=== PATIENT | female | born 2000 | race Caucasian/White ===

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

== ENCOUNTER → 2018-02-19 12:11 | Outpatient (CLI) | payer OTHER, MEDICAID, SELFPAY ==
--- NOTE | 2018-02-19 12:13 | DI.RAD.S_ITS ---
PROCEDURE: XR ABDOMEN 1V INDICATIONS: f/u constipation TECHNIQUE: One view of the abdomen acquired. COMPARISON: [facility], CR, XR ABDOMEN 1V, 11/29/2017, 16:17. FINDINGS: Surgical changes and devices: None. Bowel: Large amount of dense stool seen throughout the colon with grossly unchanged appearance since 11/29/17. No definite bowel dilatation to suggest obstruction. There is a large amount of stool seen projecting in the rectal vault or sigmoid colon. Soft tissues: No suspicious abdominal calcifications. Visualized solid organ contours appear normal in size. Bones: No suspicious bony lesions. IMPRESSION: Overall, unchanged appearance of large amount of retained stool since 11/29/17. Dictated by: Mack Milner M.D. on 02/19/2018 at 12:49 Approved by: Mack Milner M.D. on 02/19/2018 at 12:50
== END ==
PROVIDERS: PCP Family Medicine; Visit Provider Family Medicine
DX: K59.00 Constipation, unspecified (principal)
CPT/HCPCS: 74018

== ENCOUNTER 2018-02-24 12:18 | Emergency (ER) | payer OTHER, MEDICAID, SELFPAY ==
[2018-02-24 12:31] VITALS: BP 99/75; PULSE 105; RESP 16; TEMP 36.1; O2SAT 99
--- NOTE | 2018-02-24 12:40 | ED.SOB ---
HPI - SOB/Dyspnea <MARY ANN Dalal - Last Filed: 02/24/18 13:30> General Chief Complaint: Shortness of Breath/Dyspnea Stated Complaint: Difficulty breathing, lots of mucus Time Seen by Provider: 02/24/18 12:40 Source: patient Mode of arrival: ambulatory Limitations: no limitations History of Present Illness pt c/o cough for approx x2 mos or longer, states that it got worse this past week, and now she is coughing up yellow stuff, has not taken anything for it MD Complaint: cough and pain with inspiration Onset (ago): month(s) (2) Severity: mild Consistency/Duration: constant Relieving factors: nothing Exacerbating factors: nothing Associated symptoms: pain with inspiration, cough and sputum production Treatment prior to arrival: none Related Data Home oxygen amount: none Previous Rx's Medication Instructions Recorded docusate sodium 250 mg capsule 250 mg PO DAILY #30 cap 11/29/17 magnesium hydroxide 400 mg/5 mL 30 ml PO BEDTIME PRN #360 ml 11/29/17 oral suspension mineral oil enema 118 ml [place] ONCE #135 ml 11/29/17 ondansetron 4 mg disintegrating 4 mg PO Q8-12H PRN #30 tab 02/12/18 tablet sertraline 25 mg tablet 25 mg PO DAILY #60 tab 02/19/18 albuterol sulfate 1 puff INHALATION Q8H PRN #6.7 gram 02/24/18 azithromycin [Zithromax Z-Ryan] See Label Instructions .ROUTE 02/24/18 .COMPLEX #6 tab guaifenesin [Mucinex] 600 mg PO Q12H #20 tab 02/24/18 prednisolone sodium phosphate 20 mg PO DAILY 5 Days tab 02/24/18 Allergies Allergy/AdvReac Type Severity Reaction Status Date / Time No Known Drug Allergies Allergy Verified 02/19/18 11:38 Review of Systems <MARY ANN Dalal - Last Filed: 02/24/18 13:30> Review of Systems All systems reviewed & are unremarkable except as noted in HPI and below Constitutional Reports as per HPI, Reports system reviewed and no additional complaints, except as docu, Denies fever(s) and Denies headache(s) Eyes Denies eye discharge, Denies irritation and Denies itchy eyes ENT Ears, Nose, Mouth, and Throat: Denies headache(s), Denies nasal congestion, Denies nasal discharge, Denies neck pain, Denies sinus pain, Denies sinus pressure and Denies sore throat Cardiovascular Denies chest pain, Denies dyspnea and Denies dyspnea on exertion Respiratory Reports as per HPI, Denies chest congestion, Reports cough, Reports pain on inspiration, Reports pain with cough, Denies dyspnea, Denies dyspnea on exertion and Denies wheezing Musculoskeletal Denies back pain and Denies neck pain Neurologic Denies headache(s) Allergic/Immunologic Denies itchy eyes and Denies wheezing Exam <MARY ANN Dalal - Last Filed: 02/24/18 13:30> Initial Vital Signs Initial Vital Signs: Vital Signs Temperature 97 F L 02/24/18 12:31 Pulse Rate 105 H 02/24/18 12:31 Respiratory Rate 16 02/24/18 12:31 Blood Pressure 99/75 02/24/18 12:31 Pulse Oximetry 99 02/24/18 12:31 Const General: cooperative, healthy appearing, comfortable, well developed and well groomed Nutritional Appearance: average body habitus Orientation: alert, awake and oriented x3 HENMT Head: normal to inspection and normocephalic Ears: hearing grossly normal bilaterally, external ears normal, TM's normal bilaterally and mastoids normal Nose: external nose normal and nares normal Face and sinus: normal facial exam, sinuses nontender and face symmetric Mouth: oral mucosae normal, lip normal, tongue normal, oropharynx normal and moist mucous membranes Teeth and gingiva: dentition normal and gingiva normal Throat: posterior oropharynx normal, tonsils normal and uvula midline Eyes General: appearance normal, both eyes and all related structures Visual Jimenes: normal visual jimenes by confrontation Eyelids: eyelids normal Conjunctivae: conjunctivae normal Sclera: sclerae normal Pupils: PERRL EOM: EOM intact bilaterally Neck Neck: normal visual inspection, full ROM, no meningeal signs, trachea midline, supple and No lymphadenopathy Chest Chest: normal inspection of the chest Resp Effort & Inspection: normal respiratory effort and able to speak in complete sentences Auscultation: clear to auscultation bilaterally, bronchial breath sounds bilaterally and rhonchi (mild) left upper, right upper and upper bilaterally Cardio Rate: regular rate Rhythm: regular rhythm Heart Sounds: S1 normal and S2 normal Back/Spine/Pelvis Cervical Spine: cervical ROM normal Thoracic/Lumbar Spine: thoraco-lumbar ROM normal Skin General: no rashes or lesions noted, elasticity normal, turgor normal and dry skin Neuro General: alert, awake, oriented x3 and meningeal signs present Cognition: normal cognition Speech: speech normal Gait: normal gait Motor: muscle tone normal throughout Sensory Exam: no sensory deficits noted Extrem General: normal to inspection and full ROM Psych Appearance: grossly normal and well kempt Mental Status: mental status grossly normal Speech and Movement: speech and movement normal Mood: congruent mood Affect: normal affect Attitude: cooperative Thought Process: normal Thought Content: normal Judgment: judgment good <Lucero Aparicio DO - Last Filed: 02/24/18 18:02> Initial Vital Signs Initial Vital Signs: Vital Signs Temperature 97 F L 02/24/18 12:31 Pulse Rate 105 H 02/24/18 12:31 Respiratory Rate 16 02/24/18 12:31 Blood Pressure 99/75 02/24/18 12:31 Pulse Oximetry 99 02/24/18 12:31 Course <MARY ANN Dalal - Last Filed: 02/24/18 13:30> Course Narrative: pt politely declined xray saying she just had one done about 3 days ago, because she saw her dr for constipation issues Vital Signs - 8 hr 02/24/18 12:31 Temperature 97 F L Pulse Rate 105 H Respiratory Rate 16 Blood Pressure 99/75 Pulse Oximetry 99 <Lucero Aparicio DO - Last Filed: 02/24/18 18:02> Vital Signs - 8 hr 02/24/18 12:31 Temperature 97 F L Pulse Rate 105 H Respiratory Rate 16 Blood Pressure 99/75 Pulse Oximetry 99 MDM - SOB/Dyspnea <MARY ANN Dalal - Last Filed: 02/24/18 13:30> Differential Diagnosis Likely community acquired pneumonia, asthma with exacerbation and other (viral illness, flu, sinusitis, bronchitis, pneumonia, uri) Discharge Plan Departure Patient Disposition: Home Clinical Impression: Walking pneumonia Discharge Date/Time: 02/24/18 13:02 Interventions: ED Discharge Assessment Last Done: 02/24/18 13:02 Instructions: Atypical Pneumonia Prescriptions: New azithromycin [Zithromax Z-Ryan] 250 mg tablet See Label Instructions .ROUTE .COMPLEX Qty: 6 RF: 0 albuterol sulfate 90 mcg/actuation HFA aerosol inhaler 1 puff INHALATION Q8H PRN (Reason: shortness of breath or wheezing) Qty: 6.7 RF: 0 guaifenesin [Mucinex] 600 mg tablet extended release 12hr 600 mg PO Q12H Qty: 20 RF: 0 prednisolone sodium phosphate 10 mg tablet,disintegrating 20 mg PO DAILY 5 Days RF: 0 No Action magnesium hydroxide [Milk of Magnesia] 400 mg/5 mL suspension 30 ml PO BEDTIME PRN (Reason: constipation) Qty: 360 RF: 0 mineral oil [Fleet Mineral Oil] enema 118 ml MN ONCE Qty: 135 RF: 2 ondansetron 4 mg tablet,disintegrating 4 mg PO Q8-12H PRN (Reason: nausea and vomiting) Qty: 30 RF: 0 docusate sodium 250 mg capsule 250 mg PO DAILY Qty: 30 RF: 0 sertraline 25 mg tablet 25 mg PO DAILY Qty: 60 RF: 1 Referrals: Thuy Puri MD [Primary Care Provider] - (please follow up in 3-5 days) <Lucero Aparicio DO - Last Filed: 02/24/18 18:02> Cosign ED Attending Cosbernadetteature Attestation: I was immediately available in the department for consultation. Documentation has been reviewed. I agree with assessment and plan.
== END 2018-02-24 13:02 | disposition home or self-care (01) ==
LOC: ED 12:57
PROVIDERS: Emergency Provider Nurse Practitioner; PCP Family Medicine
DX: J18.9 Pneumonia, unspecified organism (principal)
CPT/HCPCS: 99282

== ENCOUNTER 2020-08-17 08:27 | Emergency (ER) | payer OTHER, MEDICAID, SELFPAY ==
[2020-08-17 08:35] VITALS: BP 124/72; PULSE 72; RESP 16; TEMP 35.9; O2SAT 98; BMI 20.5
--- NOTE | 2020-08-17 08:50 | ED.EYEPROB ---
HPI - Eye Problem General Chief complaint: Eye Problems Stated complaint: eyes swollen/visual changes x1 day Time Seen by Provider: 08/17/20 08:41 Source: patient Mode of arrival: Ambulatory History of Present Illness HPI Narrative: 20-year-old woman with no significant medical issues presents with 4 days of increasing bilateral eye erythema, drainage and over the last 24 hours significantly increased pain. She has noticed some periocular swelling and has not had any vision changes. She has no light sensitivities. She notes that she and her 5-month-old son both had viral upper respiratory infections that tested COVID negative last week. They both had slightly irritated eyes as he has improved with viral symptoms his eye symptoms have resolved. As she has improved with the viral symptoms her eyes have gotten significantly worse. The left is worse than the right. She describes no for fevers, cough is resolving, no dyspnea, no abdominal pain, no vomiting or diarrhea and no other skin rashes or other complications after recent viral infection. Related Data Previous Rx's Medication Instructions Recorded docusate sodium 250 mg capsule 250 mg PO DAILY #30 cap 11/29/17 magnesium hydroxide 400 mg/5 mL 30 ml PO BEDTIME PRN #360 ml 11/29/17 oral suspension mineral oil 118 ml UT ONCE #135 ml 11/29/17 ondansetron 4 mg disintegrating 4 mg PO Q8-12H PRN #30 tab 02/12/18 tablet sertraline 25 mg tablet 25 mg PO DAILY #60 tab 02/19/18 albuterol sulfate 1 puff INHALATION Q8H PRN #6.7 gram 02/24/18 azithromycin [Zithromax Z-Ryan] See Rx Instructions .ROUTE 02/24/18 .COMPLEX #6 tab guaifenesin [Mucinex] 600 mg PO Q12H #20 tab 02/24/18 gentamicin 2 drp EYE-BOTH Q8H 5 Days #5 ml 08/17/20 gentamicin 2 drp EYE-BOTH Q8H 5 Days #5 ml 08/17/20 Allergies Allergy/AdvReac Type Severity Reaction Status Date / Time No Known Drug Allergies Allergy Verified 08/17/20 08:39 Review of Systems Review of Systems Narrative: Remainder of review of systems including constitutional, ENT, cardiovascular, respiratory, GI, , musculoskeletal, skin, neurologic and psychiatric systems reviewed and are unremarkable except as noted in HPI. Patient History Social History Smoking Status: Current some day smoker Smoking Status: Current some day smoker tobacco type: cigarettes Substance Use Type: does not use Exam Narrative Exam Narrative: General: Alert appropriate in no acute distress ENT: Bilateral scleral injection with discharge from both eyes, left eye with more injection than the right. Extraocular eye movement is completely intact, pupils are equal and reactive, visual acuity is within normal limits and she has no specific light sensitivity Respiratory: Able to speak in full sentences, no obvious respiratory distress Skin: No obvious rashes, warm and dry Neurologic: Grossly intact no obvious asymmetries or abnormalities Psych, appropriate insight and affect, cooperative Initial Vital Signs Initial Vital Signs: Vital Signs Temperature 96.7 F L 08/17/20 08:35 Pulse Rate 72 08/17/20 08:35 Respiratory Rate 16 08/17/20 08:35 Blood Pressure 124/72 08/17/20 08:35 Pulse Oximetry 98 08/17/20 08:35 Course Vital Signs Vital signs: Vital Signs - 8 hr 08/17/20 08:35 Temperature 96.7 F L Pulse Rate 72 Respiratory Rate 16 Blood Pressure 124/72 Pulse Oximetry 98 MDM - Eye Problem MDM Narrative Medical decision making narrative: 20-year-old woman with viral syndrome and viral conjunctivitis last week now with superimposed bacterial conjunctivitis worsening over last 24 hours. Will treat with gentamicin until clear. She is already taking very specific precautions to wash her hands regularly to not spread this to her 5-month-old son. She is safe for home discharge Discharge Plan Departure Patient Disposition: Home Clinical Impression: Bacterial conjunctivitis Instructions: DI for Conjunctivitis Activity Restrictions/Additional Instructions: Thank you for coming in today I do think that you are developing a bacterial conjunctivitis (pink eye) as you are clearing up your recent upper respiratory infection I [facility] to picker and packer today. If things get worse, feel free to return to the ER for further evaluation. Prescriptions: New gentamicin 0.3 % drops 2 drp EYE-BOTH Q8H 5 Days Qty: 5 RF: 0 gentamicin 0.3 % drops 2 drp EYE-BOTH Q8H 5 Days Qty: 5 RF: 0 No Action magnesium hydroxide [Milk of Magnesia] 400 mg/5 mL suspension 30 ml PO BEDTIME PRN (Reason: constipation) Qty: 360 RF: 0 mineral oil [Fleet Mineral Oil] enema 118 ml UT ONCE Qty: 135 RF: 2 ondansetron 4 mg tablet,disintegrating 4 mg PO Q8-12H PRN (Reason: nausea and vomiting) Qty: 30 RF: 0 docusate sodium 250 mg capsule 250 mg PO DAILY Qty: 30 RF: 0 sertraline 25 mg tablet 25 mg PO DAILY Qty: 60 RF: 1 azithromycin [Zithromax Z-Ryan] 250 mg tablet See Rx Instructions .ROUTE .COMPLEX Qty: 6 RF: 0 albuterol sulfate 90 mcg/actuation HFA aerosol inhaler 1 puff INHALATION Q8H PRN (Reason: shortness of breath or wheezing) Qty: 6.7 RF: 0 guaifenesin [Mucinex] 600 mg tablet extended release 12hr 600 mg PO Q12H Qty: 20 RF: 0 Referrals: Miscellaneous,Doctor, MD [Primary Care Provider] -
== END 2020-08-17 09:03 | disposition home or self-care (01) ==
PROVIDERS: Emergency Provider Emergency Medicine
DX: H10.89 Other conjunctivitis (principal); B34.9 Viral infection, unspecified; B96.89 Other specified bacterial agents as the cause of diseases classified elsewhere
CPT/HCPCS: 99281; 99282

== ENCOUNTER 2021-01-02 07:15 | Emergency (ER) | payer OTHER, MEDICAID, SELFPAY ==
--- NOTE | 2021-01-02 07:27 | PC.NURSE ---
0722 pt not in either waiting areas. will check again.
--- NOTE | 2021-01-02 07:51 | PC.NURSE ---
pt not in either waiting areas 0745.
== END 2021-01-02 08:03 | disposition left against medical advice (07) ==
PROVIDERS: Emergency Provider Emergency Medicine

== ENCOUNTER 2021-05-29 05:47 | Inpatient (IN) | payer OTHER, MEDICAID, SELFPAY ==
--- NOTE | 2021-05-29 07:14 | P.HPOB_ITS ---
OB HPI Date/Time Date of admission: 05/29/21 Date Patient Seen: 05/29/21 Time Patient Seen: 06:55 History of Present Condition Chief complaint: MATERNITY Estimated Gestational Age (weeks): 40w 2d : 2 Para: 1 Narrative: 21-year-old at 40 weeks and 2 days who delivered in the parking prior to arrival. Delivery was at 5:37 a.m.. Placenta delivered at 6:09 a.m. in the center with center nurses. She has been receiving care in [place] with Dr. Trevizo due to methadone use. The plan had been to deliver in [place] however she and her fiance came to [facility] due to rapid labor. She has a history of substance use disorder. She delivered her first baby 14 months ago vaginally at [facility] in [facility] and has been clean since that time. Her baby spent a week and half withdrawing but ultimately discharged home with her and her partner. CPS was involved. She currently lives with her partner and [id number] son. Her grandparents came from [place] recently to be with her son in preparation for her giving . She smokes cigarettes and marijuana but denies other drug use. She receives methadone through [facility] and has been receiving her medication weekly given stability. She states urine drug screens have been appropriate the past 3 months. She would like to breast-feed and was told she would be able to. records are not currently available but have been requested. care: good care Preadmission Labs Last OB Lab Results: Blood Type O Positive 05/29/21 08:13 05/29/21 Antibody Screen Negative 05/29/21 08:13 05/29/21 Hematocrit 33.3 % (36-46) L 05/29/21 08:13 05/29/21 Hemoglobin 10.8 g/dL (12.0-16.0) L 05/29/21 08:13 05/29/21 Hepatitis B Surface Antigen NEGATIVE S/C (NEGATIVE-) 08/10/17 09:46 08/10/17 Hepatitis C Antibody NEGATIVE S/C (NEGATIVE-) 08/10/17 09:46 08/10/17 [facility] Medical History Heroin abuse Methadone dependence Social History (Updated 05/29/21 @ 10:24 by Alicia Ramon DO) marital status: unmarried,living together Smoking Status: Current every day smoker substance use type: former substance user and marijuana Meds Home Medications and Allergies Home Medications Medication Instructions Recorded Confirmed Type docusate sodium 250 mg capsule 250 mg PO DAILY #30 cap 11/29/17 02/19/18 Rx magnesium hydroxide 400 mg/5 mL 30 ml PO BEDTIME PRN #360 ml 11/29/17 02/19/18 Rx oral suspension (Milk of Magnesia) mineral oil (Fleet Mineral Oil) 118 ml ID ONCE #135 ml 11/29/17 02/19/18 Rx ondansetron 4 mg disintegrating 4 mg PO Q8-12H PRN #30 tab 02/12/18 02/19/18 Rx tablet sertraline 25 mg tablet 25 mg PO DAILY #60 tab 02/19/18 Rx albuterol sulfate 90 mcg/actuation 1 puff INHALATION Q8H PRN #6.7 gram 02/24/18 Rx aerosol inhaler azithromycin 250 mg tablet See Rx Instructions .ROUTE 02/24/18 Rx (Zithromax Z-Ryan) .COMPLEX #6 tab guaifenesin 600 mg tablet, 600 mg PO Q12H #20 tab 02/24/18 Rx extended release 12 hr (Mucinex) Allergies Allergy/AdvReac Type Severity Reaction Status Date / Time No Known Drug Allergies Allergy Verified 08/17/20 08:39 Review of Systems Review of Systems ROS: Yes All systems reviewed with the patient and are negative except as otherwise documented OB Exam Narrative Exam Narrative: Temperature 36.2? blood pressure 133/84 heart rate 56 HENMT Head: normal to inspection Mouth: oral mucosae normal Eyes General: appearance normal, both eyes and all related structures Resp Effort & Inspection: normal respiratory effort Auscultation: clear to auscultation bilaterally Cardio Rate: regular rate Rhythm: regular rhythm Heart Sounds: S1 normal and S2 normal Extremities Lower extremity: Yes normal to inspection Other: First-degree midline vaginal laceration without bleeding, no repair required Objective Labs Result Diagrams: 05/29/21 08:13 Assessment and Plan Assessment and Plan Assessment and Plan narrative: 21-year-old at 40 weeks and 2 days gestation after precipitous vaginal delivery on her way to the hospital. Placenta delivered by center nurses. care has been at [facility] in [place] with Dr. Trevizo due to methadone use (history of heroin use, clean 14 months). The plan had been to deliver in [place] however given precipitous labor, she came here. She was under the impression she could breastfeed given stability on methadone. Her first baby was in the NICU for opiate withdrawal for a week and half. CPS was involved, ultimately she was able to take her baby home and has had custody ever since. Plan Admit CBC, type and screen and COVID screen Urine drug screen now Need records from [facility] well as [facility] Routine care May breast feed until records received. If she is only using methadone, breast- feeding is encouraged. Social work consult
[2021-05-29 08:25] LABS: Add Manual Diff / Slide Review NO; Basophils Absolute Auto 0 /uL (0-100); Basophils Percent Auto 0.2 % (0-2); Eosinophils Absolute Auto 0 /uL (0-450); Hematocrit 33.3 % (36-46); Hemoglobin 10.8 g/dL (12.0-16.0); Lymphocytes Absolute Auto 1100 /uL (1100-4500); Lymphocytes Percent Auto 8.7 % (25-40); Mean Corpuscular HGB Conc 32.5 % (30-36); Mean Corpuscular Volume 86.1 fL (80-100); Monocytes Absolute Auto 600 /uL (0-900); Monocytes Percent Auto 4.4 % (3-14); Neutrophils Absolute Auto 11300 /uL (1500-7000); Neutrophils Percent Auto 86.7 % (50-75); Platelet Count 236 X10^3/uL (150-400); Red Blood Cell Count 3.86 X10^6/uL (4.0-5.2); Red Cell Distribution Width 13.8 % (11.6-14.8)
[2021-05-29 10:52] LABS: COVID19 -Nasal RAPID Negative (Negative)
[2021-05-29 12:58] LABS: Ur Creatinine Normal (Normal); Ur Specific Gravity Normal (Normal); Urine Tetrahydrocannabinol Positive (Negative); Urine pH Normal (Normal)
[2021-05-29 12:59] LABS: UR Morphine/Opiate cutoff 300 Negative (Negative); Urine Amphetamines Negative (Negative); Urine Barbiturates Negative (Negative); Urine Benzodiazepines Negative (Negative); Urine Cocaine Negative (Negative); Urine MDMA Negative (Negative); Urine Methadone Positive (Negative); Urine Methamphetamines Negative (Negative); Urine Oxycodone Negative (Negative); Urine Phencyclidine Negative (Negative); Urine Tricyclic Antidepressant Negative (Negative)
--- NOTE | 2021-05-29 13:28 | CM.SWNOTE ---
LAMBSKIN TRIMMER Assessment LAMBSKIN TRIMMER receives consult and enters room to meet with patient, patient's daughter, and patient's partner. Patient just gave to baby earlier this morning. It is reported baby girl's name is Hafsa Larsen. Both parents present as attentive and appropriate to baby's needs. Patient has hx of substance use and tested positive today for Methadone and THC. LAMBSKIN TRIMMER calls CPS and confirms that there is no open CPS case for patient and her 14 month old child. It is reported that the family resides at a transitional housing 2 bedroom apartment through [facility]. It is reported that the family just moved from a 1 bedroom apt and have been connected with this service for the last year and will have this stable housing for at least the next year. Patient and partner states that the have a case management manager and take classes regularly. It is reported that the couple has a 14 month old son and patient's grandmother is currently caring for him. It is reported that grandmother resides in [place] currently and has been visiting in preparation for baby's arrival, and grandmother may move to the area shortly. Patient and partner state that they have some family that live locally but are not supportive and patient and partner are focusing on their independence with the services they have in place. Patient endorses that she has been going to [facility] since February 2020. Patient endorses she was going daily for methadone doses but currently only goes weekly. Patient endorses she has a counselor named Theresa and goes regularly for UAs and THO counseling. 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 Patient endorses she plans to breast feed. Patient endorses being set up for Food stamps but hasn't been receiving benefits and plans to set it up again. Patient endorses interest in setting up [facility] services as well. Patient endorses that their son goes to [facility] for PCP well visits and plans to set up baby girl with an [facility] care PCP appt. LAMBSKIN TRIMMER suggests scheduling appt for future date prior to baby's d/c. LAMBSKIN TRIMMER asks about patient's care and patient states she went to [facility] in [place], wanted a new OBGYN so she got a referral from [facility] and went to the [facility] for most of her care. LAMBSKIN TRIMMER states that LAMBSKIN TRIMMER will be at hospital further this week and to reach out if patient has any questions or needs support with any resources. LAMBSKIN TRIMMER reviews this with RN and Dr. Ramon and reviews medical records requested. L&D are still waiting for further records from [facility]. LAMBSKIN TRIMMER calls [facility] for further collateral information and confirms that patient has been going to [facility] regularly since 2019 and patient is prescribed Methadone. It is reported that patient has regular monthly UAs and has only been positive for THC and Methadone. It is reported that patient sees counselor Theresa Zelaya and has frequent visits and patient has weekly Methadone doses on . LAMBSKIN TRIMMER asks about care and it is reported that patient had a OB apt with [facility] and established care there. LAMBSKIN TRIMMER reviews this information with L&D RN. It is the opinion of this LAMBSKIN TRIMMER that patient, patient's partner and baby are safe to d/c to home when medically clear. LAMBSKIN TRIMMER reviews the above with L&D provider Dr. Ramon who indicates agreement and understanding. L&D team to continue to seek full records for patient's care. NAZANIN Man
[2021-05-29] MEDS: ACETAMINOPHEN 325 MG TABLET 650 MG PO (19:52)
[2021-05-29] MEDS: IBUPROFEN 600 MG TABLET PO (19:53)
[2021-05-30] MEDS: ACETAMINOPHEN 325 MG TABLET 650 MG PO ×2 (04:43→10:36)
[2021-05-30] MEDS: IBUPROFEN 600 MG TABLET PO ×2 (04:44→10:35)
--- NOTE | 2021-05-30 08:29 | P.DS_ITS ---
Discharge Providers Provider Date of admission: 05/29/21 05:47 Discharge Date: 05/30/21 Consults: 05/29/21 08:52 Consult to FITNESS WORKER - Biology Specimen Technician Routine Comment: h/o drug abuse, h/o CPS 05/30/21 07:11 Consult to Ear Muff Assembler Routine Comment: Discharge provider: DO Juwan Dietz Hospital Course Date Patient Seen: 05/30/21 Time Patient Seen: 08:00 Diagnoses: Spontaneous vaginal delivery 40 weeks of Methadone use Hospital Course: Patient is a 21-year-old after precipitous vaginal delivery outside the hospital on 05/29/19 to approximately 40 weeks and 2 days gestation. care began at [facility] in [facility] then she transferred to [facility] due to methadone use. She has a history of heroin abuse but has been on methadone for 14 months since the of her first child. She has been compliant treatment through [facility]. The plan had been to deliver in [place] however due to rapidly progressing labor, her boyfriend brought her to [facility]. She delivered a vigorous female weighing 2690 g. Placenta was delivered by center nursing shortly after arrival in the center. She sustained a first-degree vaginal laceration which did not require repair. course uncomplicated. Records were received from [place] with some labs. There was difficulty obtaining records from [facility] unfortunately despite multiple attempts. Records were also obtained from [facility] and consistent with her current methadone use with urine toxicology screens positive for methadone and marijuana as expected. She takes 110 mg of methadone daily and receives her medication weekly given stability and compliance with the program. FITNESS WORKER met with her and did not identify any barriers to taking her home on discharge. There are currently no open CPS cases. She was breast-feeding well. Infant was showing mild signs of withdrawal but not requiring medication. She was ambulating, voiding and passing flatus. Tolerating a diet. Vaginal bleeding as expected and decreasing. She wanted Depo-Provera for control prior to discharge but this was not covered by insurance and was going to cost $500. Patient was advised to call for fevers, severe pain or bleeding through more mino n a pad an hour. She will follow-up in clinic in 6 weeks but we will see if we can get her a Depo shot before then. Peripartum Data Delivery Method: Natural Vaginal Laceration Description: Vaginal - 1st Degree 1: Disposition of : other (Still admitted to monitor for withdrawal from methadone) Status at Discharge Cognitive/behavioral status at discharge: at baseline, oriented Functional status at discharge: independent ambulation Overall status at discharge: patient is progressing back to baseline Time Spent with Patient Time attestation: Total time spent providing and/or coordinating discharge services: Objective Labs Result Diagrams: 05/29/21 08:13 Labs: Laboratory Results - last 24 hr 05/29/21 05/29/21 05/29/21 08:13 10:26 10:52 U Opiates 300ng/mL cut Ur Oxycodone Screen Urine Methadone Screen Ur Barbiturates Screen U Tricyclic Antidepress Ur Phencyclidine Scrn Ur Amphetamines Screen U Methamphetamines Scrn Ur MDMA Scrn (Ecstasy) U Benzodiazepines Scrn Urine Cocaine Screen U Marijuana (THC) Screen SARS-CoV-2 (PCR) Negative Cancelled Blood Type O Positive Antibody Screen Negative 05/29/21 12:10 U Opiates 300ng/mL cut Negative Ur Oxycodone Screen Negative Urine Methadone Screen Positive H Ur Barbiturates Screen Negative U Tricyclic Antidepress Negative Ur Phencyclidine Scrn Negative Ur Amphetamines Screen Negative U Methamphetamines Scrn Negative Ur MDMA Scrn (Ecstasy) Negative U Benzodiazepines Scrn Negative Urine Cocaine Screen Negative U Marijuana (THC) Screen Positive H SARS-CoV-2 (PCR) Blood Type Antibody Screen Exam Vital Signs (past 8 hours): Temperature 97.7? blood pressure 134/82 heart rate 60 Narrative Exam Narrative: General: Awake and alert, no acute distress. HEENT: NCAT, EOMI, moist oral mucosa CV: Regular rate and rhythm, no murmurs, rubs or gallops Lungs: CTAB, no wheezes, rales, or rhonchi Abdomen: Soft, nontender; bowel tones active; uterus firm 1 cm below umbilicus Extremities: Warm, no edema Discharge Plan Discharge Plan Patient Disposition: Home Discharge orders & Medications Prescriptions: New docusate sodium 100 mg Capsule 100 mg PO DAILY Qty: 30 0RF ibuprofen 600 mg Tablet 600 mg PO Q6HR PRN (Reason: Pain, Mild (1-3)) Qty: 30 0RF Prenatabs Rx 29 mg iron- 1 mg Tablet 1 tab PO DAILY Qty: 30 0RF Discontinued magnesium hydroxide [Milk of Magnesia] 400 mg/5 mL suspension 30 ml PO BEDTIME PRN (Reason: constipation) Qty: 360 0RF mineral oil [Fleet Mineral Oil] enema 118 ml AR ONCE Qty: 135 2RF ondansetron 4 mg tablet,disintegrating 4 mg PO Q8-12H PRN (Reason: nausea and vomiting) Qty: 30 0RF docusate sodium 250 mg capsule 250 mg PO DAILY Qty: 30 0RF sertraline 25 mg tablet 25 mg PO DAILY Qty: 60 1RF Rx Instructions: Take one tablet daily for 2 weeks. If no negative effects, increase to 2 tabs daily. azithromycin [Zithromax Z-Ryna] 250 mg tablet See Rx Instructions .ROUTE .COMPLEX Qty: 6 0RF Rx Instructions: take 500 mg today (day 1), then 250 mg for 4 days (days 2-5) albuterol sulfate 90 mcg/actuation HFA aerosol inhaler 1 puff INHALATION Q8H PRN (Reason: shortness of breath or wheezing) Qty: 6.7 0RF guaifenesin [Mucinex] 600 mg tablet extended release 12hr 600 mg PO Q12H Qty: 20 0RF Follow up/Referrals: Alicia Ramon DO [Physician] - 6 Weeks (please follow up w/ Dr. Ramon on Saturday, Jul 10 @ 11:30am for your appt.) Visit Report/Discharge Packet Stand Alone Forms: Discharge: Care Visit Report Forms: Patient Portal/API, Stroke Signs & Symptoms Discharges patient from system. Discharge Date/Time: 05/30/21 11:59
[2021-05-30] MEDS: PRENATAL VIT,CALC/IRON/FOLIC 1 TABLET 1 TAB PO (10:35)
[2021-05-30] MEDS: DOCUSATE 100 MG CAPSULE PO (10:35)
== END 2021-05-30 11:59 | disposition home or self-care (01) | DRG 560 ==
PROVIDERS: Admitting Provider Family Medicine; Referring Provider Obstetrics & Gynecology; Visit Provider Family Medicine
DX: Z39.0 Encounter for care and examination of mother immediately after delivery (principal); O62.3 Precipitate labor; Z3A.40 40 weeks gestation of pregnancy; O99.324 Drug use complicating childbirth; F11.90 Opioid use, unspecified, uncomplicated; F12.90 Cannabis use, unspecified, uncomplicated; O99.334 Smoking (tobacco) complicating childbirth; F17.210 Nicotine dependence, cigarettes, uncomplicated; Z20.822 Contact with and (suspected) exposure to COVID-19
CPT/HCPCS: 36415; 80305; 85025; 86850; 86900; 86901; 87635; 99222; 99238; C9803; G0379